=== PATIENT | female | born 1985 | race Asian ===

== ENCOUNTER 2017-06-21 00:35 | Inpatient (IN) | payer SELFPAY ==
[~2017-06-21] VITALS: Ht 167.6 cm; Wt 81.6 kg
[2017-06-21] MEDS ORDERED: CITRIC ACID/SODIUM CITRATE 30 ML UDC PO ONE (01:20)
[2017-06-21] MEDS: LACTATED RINGERS 1,000 ML IV SCH ×2 (01:39→04:20)
[2017-06-21 01:41] LABS: BASOPHILS # (AUTO) 0.1 K/uL (0.00-0.22); BASOPHILS % (AUTO) 1.6 % (0.0-2.0); EOSINOPHILS # (AUTO) 0.2 K/uL (0-0.4); EOSINOPHILS % (AUTO) 2.4 % (0.0-4.0); HEMATOCRIT 37.2 % (36-48); HEMOGLOBIN 12.3 g/dL (12.0-16.0); LYMPHOCYTES # (AUTO) 1.7 K/uL (2.5-16.5); LYMPHOCYTES % (AUTO) 25.9 % (20.5-51.1); MEAN CORPUSCULAR HEMOGLOBIN 31 pg (27-31); MEAN CORPUSCULAR HGB CONC 33 g/dL (33-37); MEAN CORPUSCULAR VOLUME 94 fL (80-94); MONOCYTES # (AUTO) 0.4 K/uL (0.8-1.0); MONOCYTES % (AUTO) 5.8 % (1.7-9.3); NEUTROPHILS # (AUTO) 4.2 K/uL (1.8-7.7); NEUTROPHILS % (AUTO) 64.3 % (42.2-75.2); PLATELET COUNT (AUTO) 143 K/uL (140-450); RED BLOOD CELL COUNT(AUTO) 3.95 MIL/uL (4.20-5.40); RED CELL DISTRIBUTION WIDTH 12.9 % (11.6-13.7); WHITE BLOOD COUNT (AUTO) 6.6 K/uL (4.8-10.8)
[2017-06-21] MEDS ORDERED: FERR-193 PO (02:30)
[2017-06-21] MEDS ORDERED: PREN-546 PO (02:30)
[2017-06-21 02:34] VITALS: BP 118/78
[2017-06-21] MEDS ORDERED: ceFAZolin 1,000 MG VIAL ONE (05:18)
[2017-06-21] MEDS ORDERED: CITRIC ACID/SODIUM CITRATE 30 ML UDC ONE (05:18)
[2017-06-21] MEDS ORDERED: BUPIVACAINE-MPF 0.75% 10 ML VIAL INJ ONE (05:43)
[2017-06-21] MEDS ORDERED: ePHEDrine 50 MG/ML VIAL ONE (05:43)
[2017-06-21] MEDS ORDERED: fentaNYL 0.05 MG/ML VIAL ONE (05:54)
[2017-06-21] MEDS ORDERED: MORPHINE PRES FREE 10 MG/10 ML AMP IV ONE (05:54)
[2017-06-21] MEDS ORDERED: ceFAZolin 1,000 MG VIAL IVP ONE (06:00)
[2017-06-21] MEDS ORDERED: OXYTOCIN 10 UNITS/ML VIAL ONE (06:09)
[2017-06-21] MEDS ORDERED: TRIAMCINOLONE 10 MG/ML 5ML VIAL ONE (06:09)
[2017-06-21] MEDS ORDERED: diphenhydrAMINE 50 MG/ML VIAL IVP PRN (06:25)
[2017-06-21] MEDS ORDERED: NALBUPHINE 10 MG/ML AMP IVP PRN ×2 (06:25)
[2017-06-21] MEDS ORDERED: KETOROLAC 60 MG/2 ML VIAL IM PRN (06:25)
[2017-06-21] MEDS ORDERED: NALOXONE 0.4 MG/ML VIAL IVP PRN ×3 (06:25)
[2017-06-21] MEDS ORDERED: ONDANSETRON 4 MG/2 ML VIAL IVP PRN ×2 (06:25)
[2017-06-21 06:43] LABS: BILIRUBIN,URINE NEGATIVE (NEGATIVE); BLOOD, URINE NEGATIVE (NEGATIVE); COLOR,URINE YELLOW (YELLOW); LEUKOCYTE ESTERASE ,URINE 1+ (NEGATIVE); NITRITE, URINE NEGATIVE (NEGATIVE); PROTEIN,URINE NEGATIVE (NEGATIVE); UGLUCOSE NEGATIVE (NEGATIVE); UROBILINOGEN,URINE 0.2 EU/dL (0.2 - 1)
[2017-06-21] MEDS ORDERED: OXYTOCIN 20 UNITS/LR PREMIX 1,000 ML IV ONE (07:15)
[2017-06-21] MEDS ORDERED: ONDANSETRON 4 MG/2 ML VIAL ONE (07:15)
[2017-06-21 08:55] LABS: APPEARANCE,URINE HAZY (CLEAR)
[2017-06-21 08:56] LABS: BACTERIA,URINE 1+ /HPF (None Seen); MUCUS,URINE 1+ /LPF (None Seen); RBC,URINE 0-3 /HPF (0-5)
[2017-06-21] MEDS ORDERED: MEASLES, MUMPS, AND RUBELLA 1 VIAL SQVAC PRN (09:05)
[2017-06-21] MEDS ORDERED: METHYLERGONOVINE 0.2 MG/ML AMP IM PRN (09:05)
[2017-06-21] MEDS ORDERED: HYDROcodone/APAP 5/325 MG 1 TAB TAB PO PRN (09:05)
[2017-06-21] MEDS ORDERED: SIMETHICONE 80 MG TAB.CHEW PO PRN (09:05)
[2017-06-21] MEDS: OXYTOCIN 20 UNITS/LR PREMIX 1,000 ML IV SCH ×2 (09:56→17:47)
--- NOTE | 2017-06-21 09:56 | NUR ---
PATIENT HAS BEEN SCREENED AND CATEGORIZED LOW NUTRITION RISK. PATIENT WILL BE SEEN WITHIN 7 DAYS OF ADMISSION. 06/27/[address]
[2017-06-21] MEDS: DOCUSATE SOD/SENNA 50/8.6 MG 1 TAB PO SCH (21:13)
[2017-06-22] MEDS ORDERED: oxyCODONE/APAP 5/325 MG 1 TAB TAB PO PRN
[2017-06-22] MEDS ORDERED: HYDROcodone/APAP 5/325 MG 1 TAB TAB PO PRN
[2017-06-22] MEDS ORDERED: TEMAZEPAM 15 MG CAP PO PRN
[2017-06-22] MEDS ORDERED: IBUPROFEN 800 MG TAB PO PRN
[2017-06-22] MEDS: OXYTOCIN 20 UNITS/LR PREMIX 1,000 ML IV SCH (01:18)
[2017-06-22 05:57] LABS: BASOPHILS % (AUTO) 0.4 % (0.0-2.0); EOSINOPHILS # (AUTO) 0.1 K/uL (0-0.4); EOSINOPHILS % (AUTO) 1.4 % (0.0-4.0); HEMATOCRIT 31.4 % (36-48); HEMOGLOBIN 10.6 g/dL (12.0-16.0); LYMPHOCYTES # (AUTO) 1.2 K/uL (2.5-16.5); LYMPHOCYTES % (AUTO) 13.3 % (20.5-51.1); MEAN CORPUSCULAR HEMOGLOBIN 32 pg (27-31); MEAN CORPUSCULAR HGB CONC 34 g/dL (33-37); MEAN CORPUSCULAR VOLUME 94 fL (80-94); MONOCYTES # (AUTO) 0.5 K/uL (0.8-1.0); MONOCYTES % (AUTO) 5.9 % (1.7-9.3); NEUTROPHILS # (AUTO) 7.3 K/uL (1.8-7.7); PLATELET COUNT (AUTO) 137 K/uL (140-450); RED BLOOD CELL COUNT(AUTO) 3.33 MIL/uL (4.20-5.40); RED CELL DISTRIBUTION WIDTH 12.8 % (11.6-13.7); WHITE BLOOD COUNT (AUTO) 9.1 K/uL (4.8-10.8)
[2017-06-22] MEDS ORDERED: SODIUM PHOSPHATE 118 ML ENEM RC SCH (09:00)
[2017-06-22] MEDS: DOCUSATE SOD/SENNA 50/8.6 MG 1 TAB PO SCH (21:07)
[2017-06-23] MEDS: DOCUSATE SOD/SENNA 50/8.6 MG 1 TAB PO SCH (21:00)
[2017-06-24] MEDS ORDERED: IBUP-2213 PO (10:12)
== END 2017-06-24 15:05 | disposition home or self-care (01) | DRG 766 ==
LOC: MLD 00:35 → MFCC 09:02
PROVIDERS: ADMIT Obstetrics & Gynecology; ATTEND Obstetrics & Gynecology
PROC: 10D00Z1 Extraction of Products of Conception, Low, Open Approach (ICD-10-PCS; principal; 2017-06-21 06:00)
DX: O34.211 Maternal care for low transverse scar from previous cesarean delivery (principal); O69.81X0 Labor and delivery complicated by cord around neck, without compression, not applicable or unspecified; O99.284 Endocrine, nutritional and metabolic diseases complicating childbirth; E03.9 Hypothyroidism, unspecified; O89.4 Spinal and epidural anesthesia-induced headache during the puerperium; Z37.0 Single live birth; Z3A.39 39 weeks gestation of pregnancy; Z28.21 Immunization not carried out because of patient refusal
CPT/HCPCS: 36415; 51702; 81001; 85025; 86592; 86886; 86900; 86901; 87086; J0690; J2270; J2405; J2590; J3010; J3301; J3490; J7060; J7120